=== PATIENT | male | born 1965 | race African-American/Black ===

== ENCOUNTER 2021-09-14 09:58 | Inpatient (IN) | payer SELFPAY ==
[~2021-09-14] VITALS: Ht 175.3 cm; Wt 70.3 kg
[2021-09-14] MEDS ORDERED: CEFTRIAXONE 1 G PREMIX 50 ML IV ONE (11:15)
[2021-09-14] MEDS ORDERED: VANCOMYCIN 1G PREMIX 200 ML IV ONE (11:15)
[2021-09-14] MEDS ORDERED: ZIPRASIDONE HCL 40MG CAPSULE PO ONE (11:30)
[2021-09-14 12:21] LABS: BASOPHILS % 0.4 % (0.0-2.0); EOSINOPHILS % 0.7 % (0.0-5.0); HEMATOCRIT. 38.9 % (42.0-52.0); HEMOGLOBIN. 12.9 g/dL (14.0-18.0); LYMPHOCYTES % 9.5 % (20.0-50.0); MEAN CORPUSCULAR HEMOGLOBIN 30.1 pg (28.0-32.0); MEAN CORPUSCULAR VOLUME 90.4 fL (80.0-94.0); MEAN PLATELET VOLUME 7.5 fl (7.4-10.4); MONOCYTES % 8.1 % (2.0-8.0); NEUTROPHILS % 81.3 % (40.0-76.0); PLATELET 443 x1000/uL (130-400); RED CELL DISTRIBUTION WIDTH 13.1 % (11.6-14.6)
[2021-09-14] MEDS ORDERED: ZIPRASIDONE MESYLATE 20MG/VIAL IM ONE (12:30)
[2021-09-14 12:33] LABS: CHLORIDE 102 mEq/L (98-107)
[2021-09-14] MEDS ORDERED: LORAZEPAM 2MG/ML CPJ IV ONE (16:00)
[2021-09-14] MEDS ORDERED: ONDANSETRON HCL 4MG/2ML INJ IV PRN (21:45)
[2021-09-14] MEDS ORDERED: ACETAMINOPHEN 325MG TABLET PO PRN (21:45)
[2021-09-14] MEDS ORDERED: HYDROCODONE/ACETAMINOPHEN 5/325MG TABLET PO PRN (21:45)
[2021-09-14] MEDS ORDERED: NALOXONE HCL 0.4MG/ML VIAL IV PRN (22:00)
[2021-09-14 23:00] VITALS: BP 109/66
[2021-09-15 08:00] VITALS: BP 101/65
[2021-09-15] MEDS: THIAMINE HCL 100MG TABLET PO SCH (10:03)
[2021-09-15] MEDS: MULTIVITAMINS,THER W-MINERALS TABLET PO SCH (10:03)
[2021-09-15] MEDS: AMLODIPINE 10MG TABLET PO SCH (10:04)
[2021-09-15 12:00] VITALS: BP 111/73
[2021-09-15 16:00] VITALS: BP 110/72
[2021-09-15] MEDS ORDERED: HALOPERIDOL LACTATE 5MG/ML VIAL IM NR (18:30)
[2021-09-15] MEDS: SULFAMETHOXAZOLE/TRIMETHOPRIM 400/80MG TAB PO SCH (21:00)
[2021-09-16] VITALS: BP 95/61
[2021-09-16] MEDS: SULFAMETHOXAZOLE/TRIMETHOPRIM 400/80MG TAB PO SCH ×3 (00:12→21:00)
[2021-09-16] MEDS: LORAZEPAM 2MG/ML CPJ IV PRN (00:43)
[2021-09-16 08:00] VITALS: BP 90/59
[2021-09-16] MEDS: AMLODIPINE 10MG TABLET PO SCH ×2 (09:00→09:39)
[2021-09-16] MEDS: MULTIVITAMINS,THER W-MINERALS TABLET PO SCH (09:39)
[2021-09-16] MEDS: THIAMINE HCL 100MG TABLET PO SCH (09:39)
[2021-09-16 12:00] VITALS: BP 95/56
[2021-09-16] MEDS: RISPERIDONE 0.5MG TABLET PO SCH ×2 (12:19→17:00)
[2021-09-16] MEDS: LORAZEPAM 2MG/ML CPJ IM PRN (13:17)
[2021-09-16 16:00] VITALS: BP 120/67
[2021-09-16 20:00] VITALS: BP 109/56
[2021-09-17] VITALS: BP 127/80
[2021-09-17] MEDS: LORAZEPAM 2MG/ML CPJ IV PRN (00:18)
[2021-09-17 04:00] VITALS: BP 120/72
[2021-09-17 08:00] VITALS: BP 119/66
[2021-09-17] MEDS: MULTIVITAMINS,THER W-MINERALS TABLET PO SCH ×2 (09:00→09:30)
[2021-09-17] MEDS: RISPERIDONE 0.5MG TABLET PO SCH ×4 (09:00→18:32)
[2021-09-17] MEDS: SULFAMETHOXAZOLE/TRIMETHOPRIM 400/80MG TAB PO SCH ×3 (09:00→21:00)
[2021-09-17] MEDS: THIAMINE HCL 100MG TABLET PO SCH ×2 (09:00→09:26)
[2021-09-17] MEDS: AMLODIPINE 10MG TABLET PO SCH ×3 (09:00→09:29)
[2021-09-17 12:00] VITALS: BP 123/70
[2021-09-17] MEDS: LORAZEPAM 2MG/ML CPJ IM PRN (13:39)
[2021-09-17 16:00] VITALS: BP 117/62
[2021-09-17 20:00] VITALS: BP 91/50
[2021-09-17] MEDS: SODIUM HYPOCHLORITE 0.125% 473ML SOLUTION TOP SCH (20:00)
[2021-09-18 04:00] VITALS: BP 93/47
[2021-09-18 08:00] VITALS: BP 114/69
[2021-09-18] MEDS: THIAMINE HCL 100MG TABLET PO SCH (08:13)
[2021-09-18] MEDS: AMLODIPINE 10MG TABLET PO SCH (08:14)
[2021-09-18] MEDS: RISPERIDONE 0.5MG TABLET PO SCH ×2 (08:14→17:29)
[2021-09-18] MEDS: MULTIVITAMINS,THER W-MINERALS TABLET PO SCH (08:14)
[2021-09-18] MEDS: LORAZEPAM 2MG/ML CPJ IM PRN ×2 (08:21→08:24)
[2021-09-18] MEDS: SULFAMETHOXAZOLE/TRIMETHOPRIM 400/80MG TAB PO SCH ×2 (10:21→20:47)
[2021-09-18] MEDS: SODIUM HYPOCHLORITE 0.125% 473ML SOLUTION TOP SCH (10:22)
[2021-09-18 12:00] VITALS: BP 96/48
[2021-09-18 16:00] VITALS: BP 90/46
[2021-09-18] MEDS: LORAZEPAM 2MG/ML CPJ IV PRN (21:07)
[2021-09-19] MEDS: LORAZEPAM 2MG/ML CPJ IV PRN (04:43)
[2021-09-19 05:00] VITALS: BP 101/52
[2021-09-19 08:00] VITALS: BP 95/51
[2021-09-19] MEDS: AMLODIPINE 10MG TABLET PO SCH (08:23)
[2021-09-19] MEDS: RISPERIDONE 0.5MG TABLET PO SCH (08:24)
[2021-09-19] MEDS: MULTIVITAMINS,THER W-MINERALS TABLET PO SCH (08:24)
[2021-09-19] MEDS: SULFAMETHOXAZOLE/TRIMETHOPRIM 400/80MG TAB PO SCH ×2 (08:24→21:27)
[2021-09-19] MEDS: SODIUM HYPOCHLORITE 0.125% 473ML SOLUTION TOP SCH (09:25)
[2021-09-19] MEDS: THIAMINE HCL 100MG TABLET PO SCH (09:31)
[2021-09-19] MEDS ORDERED: HALOPERIDOL 5MG TABLET PO SCH (10:15)
[2021-09-19] MEDS: HALOPERIDOL LACTATE 5MG/ML VIAL IM PRN (10:27)
[2021-09-19] MEDS: LORAZEPAM 2MG/ML CPJ IM PRN (11:00)
[2021-09-19 12:00] VITALS: BP 101/50
[2021-09-19] MEDS: DIVALPROEX SODIUM 250MG DR TABLET PO SCH ×2 (14:51→21:27)
[2021-09-19] MEDS: NICOTINE 21MG PATCH TD SCH (14:51)
[2021-09-19 16:00] VITALS: BP 96/50
[2021-09-19 20:00] VITALS: BP 93/51
[2021-09-19] MEDS: RISPERIDONE 1MG TABLET PO SCH (21:27)
[2021-09-20] VITALS: BP 90/51
[2021-09-20] MEDS: HALOPERIDOL LACTATE 5MG/ML VIAL IM PRN (00:50)
[2021-09-20 04:00] VITALS: BP 98/53
[2021-09-20 08:00] VITALS: BP 117/68
[2021-09-20] MEDS: DIVALPROEX SODIUM 250MG DR TABLET PO SCH ×2 (08:11→20:55)
[2021-09-20] MEDS: THIAMINE HCL 100MG TABLET PO SCH (08:11)
[2021-09-20] MEDS: MULTIVITAMINS,THER W-MINERALS TABLET PO SCH (08:11)
[2021-09-20] MEDS: SULFAMETHOXAZOLE/TRIMETHOPRIM 400/80MG TAB PO SCH ×2 (08:12→20:55)
[2021-09-20] MEDS: RISPERIDONE 1MG TABLET PO SCH ×2 (08:12→20:55)
[2021-09-20] MEDS: NICOTINE 21MG PATCH TD SCH (08:12)
[2021-09-20] MEDS: AMLODIPINE 10MG TABLET PO SCH (08:12)
[2021-09-20] MEDS: SODIUM HYPOCHLORITE 0.125% 473ML SOLUTION TOP SCH (08:12)
[2021-09-20 12:00] VITALS: BP 141/76
[2021-09-20 20:00] VITALS: BP 103/54
[2021-09-21 08:00] VITALS: BP 118/69
[2021-09-21] MEDS: RISPERIDONE 1MG TABLET PO SCH (08:41)
[2021-09-21] MEDS: AMLODIPINE 10MG TABLET PO SCH (08:41)
[2021-09-21] MEDS: THIAMINE HCL 100MG TABLET PO SCH (08:41)
[2021-09-21] MEDS: MULTIVITAMINS,THER W-MINERALS TABLET PO SCH (08:41)
[2021-09-21] MEDS: NICOTINE 21MG PATCH TD SCH (08:41)
[2021-09-21] MEDS: DIVALPROEX SODIUM 250MG DR TABLET PO SCH (08:41)
[2021-09-21] MEDS: SODIUM HYPOCHLORITE 0.125% 473ML SOLUTION TOP SCH (08:42)
[2021-09-21 09:00] VITALS: BP 118/69
== END 2021-09-21 09:20 | disposition home or self-care (01) | DRG 383 ==
LOC: ER 09:58 → 6EST 19:43 → EDBEDREQSVC 19:55 → EDBEDREQTM 19:55 → EDBEDREQ 19:55 → ENRESERV 20:38 → 6EST 09-15 20:44 → 6WST 09-18 20:31
PROVIDERS: ADMIT Hospitalist; ATTEND Hospitalist
DX: L03.115 Cellulitis of right lower limb (principal); L97.919 Non-pressure chronic ulcer of unspecified part of right lower leg with unspecified severity; F20.9 Schizophrenia, unspecified; F31.9 Bipolar disorder, unspecified; Z59.00 Homelessness unspecified
CPT/HCPCS: 36415; 73590; 73600; 73630; 80053; 83605; 84145; 85025; 87070; 87077; 87186; 93923; 99285; J0696; J1630; J2060; J3370; J3486